=== PATIENT | male | born 1970 | race Caucasian/White ===

== ENCOUNTER 2020-06-22 18:11 | Inpatient (IN) | payer MEDICAID, SELFPAY ==
--- NOTE | ~2020-06-22 | US_ITS ---
EXAMINATION: US carotid duplex BI EXAM DATE: 06/23/2020 11:27 INDICATION: Syncope. TECHNIQUE: Grayscale, color and pulsed Doppler images of the cervical carotid arteries were obtained . The degree of vessel stenosis is placed in one of the following categories: normal, <50% stenosis, 50-69% stenosis, >=70% stenosis but less than near-occlusion, near-occlusion, or occlusion. Note that percent stenosis relative to normal distal artery lumen diameter is indirectly measured from velocit y measurements as described by Dale, et al. Radiology 2003; 229:340-346. There is no prior study fo r comparison. FINDINGS: RIGHT SIDE: Right common carotid artery peak systolic velocity (PSV in cm/s): 81 Right bulb/internal carotid artery peak systolic velocity (PSV in cm/s): 57 Right internal carotid artery end diastolic velocity (EDV in cm/s): 13 Right ICA/CCA peak systolic ratio: 0.7 Right external carotid artery peak systolic velocity (PSV in cm/s): 77 Right vertebral artery antegrade flow: yes There is no focal plaque identified. LEFT SIDE: Left common carotid artery peak systolic velocity (PSV in cm/s): 88 Left bulb/internal carotid artery peak systolic velocity (PSV in cm/s): 87 Left internal carotid artery end diastolic velocity (EDV in cm/s): 18 Left ICA/CCA peak systolic ratio: 1.0 Left external carotid artery peak systolic velocity (PSV in cm/s): 76 Left vertebral artery antegrade flow: yes There is mild carotid bulb plaque. Velocity and Doppler waveforms in the common and internal carotid arteries is normal. IMPRESSION: 1. Normal right internal carotid artery. 2. Less than 50 percent stenosis in the left internal carotid artery. > Reviewed, dictated and finalized at location A. R SUPERVISOR
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
[2020-06-22 18:24] VITALS: BP 140/88; PULSE 140; RESP 20; O2SAT 97
[2020-06-22] MEDS: SODIUM CHLORIDE 0.9% IV 1,000 ML 999 ML IV CONT ×2 (18:27→22:02)
[2020-06-22 18:28] LABS: Basophils Absolute Auto 0.1 K/mm3 (0.0-0.1); Basophils Percent Auto 1.4 % (0.2-1.2); Eosinophils Absolute Auto 0.1 K/mm3 (0-0.3); Eosinophils Percent Auto 2.2 % (0-4.4); Hematocrit 39.5 % (42.0-52.0); Hemoglobin 13.2 g/dL (14.0-18.0); Immature Granulocyte Absolute 0.03 K/mm3 (0.00-0.031); Immature Granulocyte Percent A 0.5 % (0-0.5); Immature Platelet Fraction Pct 6.1 % (0.9-11.2); Lymphocytes Absolute Auto 1.67 K/mm3 (0.9-3.2); Mean Corpuscular HGB Conc 33.4 g/dl (32-36); Mean Corpuscular Hemoglobin 31.3 pg (26-34); Mean Corpuscular Volume 93.6 fl (80-100); Mean Platelet Volume 9.7 fl (7.4-10.4); Monocytes Absolute Auto 0.6 K/mm3 (0.1-0.6); Monocytes Percent Auto 8.7 % (2.6-8.5); Neutrophils Absolute Auto 3.9 K/mm3 (1.3-6.7); Neutrophils Percent Auto 61.2 % (45.5-73.1); Platelet Count Result 142 k/mm3 (150-375); Red Blood Count 4.22 M/mm3 (4.6-6.20); Red Cell Distribution Width 14.8 % (11.5-14.5); White Blood Count 6.4 K/mm3 (4.5-10.0)
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
[2020-06-22 18:40] LABS: Ethanol 42 mg/dL (<10)
[2020-06-22 18:41] LABS: INR 0.9
[2020-06-22 18:49] LABS: Alanine Aminotransferase 61 U/L (4-50); Albumin Level 5.1 g/dL (3.5-5.1); Alkaline Phosphatase 94 U/L (38-126); Anion Gap 31 mmol/L (8-16); Aspartate Amino Transferase 114 U/L (17-59); Bilirubin,Total 0.5 mg/dL (0.2-1.3); Blood Urea Nitrogen 12 mg/dL (9-20); Calcium 9.2 mg/dL (8.4-10.2); Carbon Dioxide 11 mmol/L (22-30); Chloride 99 mmol/L (98-107); Estimated CRCL calculation 84 ml/min; Estimated Glomerular Filt Rate > 60; Glucose 117 mg/dL (75-110); Potassium 3.5 mmol/L (3.4-5.0); Sodium 141 mmol/L (137-145)
[2020-06-22 19:12] LABS: Add Urine Microscopic? YES; Appearance Urine Clear (Clear); Bilirubin Urine Negative (Negative); Blood Urine 2+ (Negative); Color Urine Yellow (Yellow); Glucose Urine UA Negative (Negative); Ketones Urine Trace mg/dL (Negative); Leukocyte Esterase Ur Negative LEU/UL (Negative); Mucus Urine Heavy /lpf; Nitrate Urine Negative (Negative); Protein Urine 2+ mg/dL (Negative); RBC Urine 0-2 /hpf (0-2); Specific Grav Ur 1.019 (1.001-1.035); WBC Urine 0-3 /hpf
[2020-06-22 19:23] LABS: Amphetamine Screen Urine Negative (Negative); Barbiturate Screen Urine Negative (Negative); Benzodiazepines Screen Urine Negative (Negative); Cannabinoid Screen Urine Positive (Negative); Cocaine Screen Urine Negative (Negative); Methadone Screen Urine Negative (Negative); Opiate Screen Urine Negative (Negative); Phencyclidine Screen Urine Negative (Negative)
--- NOTE | 2020-06-22 19:41 | PC.NURSE ---
O2 off per VO Dr. Benavidez. Pt. declined chest CT
[2020-06-22 19:46] VITALS: BP 161/95; PULSE 97; RESP 19; O2SAT 99
[2020-06-22 20:05] VITALS: RESP 18; O2SAT 99
[2020-06-22] MEDS: diazePAM INJ (*CRX) 10 MG/2 ML SYRINGE 5 MG IV PUSH ×2 (20:44→22:02)
[2020-06-22] MEDS: ONDANSETRON INJ 4 MG/2 ML VIAL IV PUSH (20:45)
[2020-06-22] MEDS: TETANUS,DIPHTHERIA,AC PERTUSSIS ADULT (0.5 ML) BOOSTRIX IM (20:46)
[2020-06-22 21:31] VITALS: BP 148/92; PULSE 88; RESP 16; O2SAT 99
[2020-06-22 22:05] VITALS: BP 129/74; PULSE 104; RESP 18; O2SAT 97
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
[2020-06-23] MEDS: MORPHINE SULFATE (*CRX) 4 MG/ML INJ IV PUSH (01:11)
[2020-06-23] MEDS: LORazepam INJ (*CRX) 2 MG/ML VIAL 1 MG IV PUSH (01:12)
[2020-06-23] MEDS: chlordiazePOXIDE (*CRX) 25 MG CAPSULE PO ×5 (01:12→23:11)
[2020-06-23] MEDS: ONDANSETRON INJ 4 MG/2 ML VIAL IV PUSH (01:16)
[2020-06-23 01:21] VITALS: BP 140/95; PULSE 76; RESP 15; O2SAT 98
[2020-06-23 05:05] LABS: Basophils Absolute Auto 0.1 K/mm3 (0.0-0.1); Basophils Percent Auto 0.8 % (0.2-1.2); Eosinophils Percent Auto 0.3 % (0-4.4); Hematocrit 36.2 % (42.0-52.0); Hemoglobin 12.4 g/dL (14.0-18.0); Immature Granulocyte Absolute 0.02 K/mm3 (0.00-0.031); Immature Granulocyte Percent A 0.3 % (0-0.5); Immature Platelet Fraction Pct 6.7 % (0.9-11.2); Lymphocytes Absolute Auto 0.82 K/mm3 (0.9-3.2); Lymphocytes Percent Auto 10.9 % (18.3-44.2); Mean Corpuscular HGB Conc 34.3 g/dl (32-36); Mean Corpuscular Hemoglobin 31.3 pg (26-34); Mean Corpuscular Volume 91.4 fl (80-100); Mean Platelet Volume 10.6 fl (7.4-10.4); Monocytes Absolute Auto 0.7 K/mm3 (0.1-0.6); Monocytes Percent Auto 8.7 % (2.6-8.5); Neutrophils Absolute Auto 5.9 K/mm3 (1.3-6.7); Platelet Count Result 113 k/mm3 (150-375); Red Blood Count 3.96 M/mm3 (4.6-6.20); Red Cell Distribution Width 14.5 % (11.5-14.5); White Blood Count 7.5 K/mm3 (4.5-10.0)
[2020-06-23 05:16] LABS: Anion Gap 10 mmol/L (8-16); Blood Urea Nitrogen 9 mg/dL (9-20); Calcium 8.4 mg/dL (8.4-10.2); Carbon Dioxide 26 mmol/L (22-30); Chloride 100 mmol/L (98-107); Estimated CRCL calculation 117 ml/min; Estimated Glomerular Filt Rate > 60; Glucose 68 mg/dL (75-110); Magnesium 2.1 mg/dL (1.6-2.3); Potassium 3.9 mmol/L (3.4-5.0); Sodium 136 mmol/L (137-145)
--- NOTE | 2020-06-23 05:16 | ECHO_ITS ---
Patient Info Name: Janes Will Age: 49 years : 1970 Gender: Male Ht: 72 in Wt: 165 lbs BSA: 1.95 m2 HR: 57 bpm BP: 140 / 95 mmHg Heart Rhythm: Sinus Rhythm Technical Quality: Good Exam Date: 06/23/2020 8:41 AM Exam Location: [facility] Pulmonary Patient Status: Inpatient Admit Date: 06/22/2020 Staff Ordering Physician: Rubio Hsieh MD Risk Management Analyst: Berna Hernandez RDCS Attending Provider: Rubio Hsieh MD Referring Physician: Мария JACINTO; Exam Type: CA echo doppler color flow Study Info Indications - syncope Complete two-dimensional, color flow and Doppler transthoracic echocardiogram is performed. Summary 1. Complete two-dimensional, color flow and Doppler transthoracic echocardiogram is performed. 2. Unremarkable 2D/Doppler echocardiogram. Left Ventricle Left ventricular chamber dimension is normal. Left ventricular systolic function is normal, estimated at 60-65%. The left ventricular diastolic function is normal. Right Ventricle Right ventricular chamber dimension is normal. Left Atria Left atrial chamber dimension is normal. Right Atria Right atrial chamber dimension is normal. Aortic Valve The aortic valve is normal. Pulmonic Valve The pulmonic valve is normal. Mitral Valve The mitral valve has normal leaflets. Tricuspid Valve The tricuspid valve leaflets are normal. Pericardium/Pleural The pericardium appears normal. Aorta The aortic root size at the sinus of Valsalva is normal. Left Ventricular Outflow Tract Name Value Normal LVOT 2D LVOT Diameter 2.1 cm LVOT Doppler LVOT Peak Gradient 4 mmHg LVOT Mean Gradient 2 mmHg LVOT VTI 21 cm LVOT VTI/AV VTI Ratio 1.0 LVOT Stroke Volume 73 ml LVOT CO 14.4 l/min LVOT CI 7.4 l/min/m2 Pulmonic Valve Name Value Normal PV Doppler PV Peak Gradient 5 mmHg Mitral Valve Name Value Normal MV Doppler MV Decel [place] 313 cm/s2 MV PHT 63 ms MV Area (PHT) 3.5 cm2 4.0-5.0 MV Diastolic Function MV E Peak Velocity 68 cm/s MV A Peak Velocity 72 cm/s MV E/A 1.0 MV Decel Time 217 ms Heuspi
[2020-06-23 06:34] VITALS: BMI 21.5
[2020-06-23] MEDS: SODIUM CHLORIDE 0.9% IV 1,000 ML 125 ML IV CONT ×3 (06:59→23:10)
[2020-06-23 07:30] VITALS: BP 134/82; PULSE 69; RESP 16; TEMP 37.6; O2SAT 99
[2020-06-23 07:38] LABS: Glucose Point of Care 89 (65-105)
[2020-06-23 07:38] LABS: Glucose Point of Care 68 (65-105)
[2020-06-23 07:50] LABS: Glucose Point of Care 90 (65-105)
[2020-06-23 08:00] VITALS: BP 136/79; PULSE 63; PULSE 66; RESP 16; TEMP 37.1; O2SAT 99
[2020-06-23 10:00] VITALS: PULSE 74
[2020-06-23] MEDS: THIAMINE HCL 200 MG/2 ML VIAL 100 MG IV PUSH (10:02)
--- NOTE | 2020-06-23 10:27 | ADMGEN ---
This patient, Janes Will, was admitted to IMU Room 231-01 on 06/23/2020 at 0634. Admission was completed at 10:27. Patient/family oriented to hospital policies and general routines including ID bracelet, bed and alarms, visiting hours, pain management, procedures, bathroom and other care routines, personal items, smoking policy, room service/diet, and visiting hours. Information on how to activate the Rapid Response Team has been discussed. Patient/Family are encouraged to report perceived risks to care and to ask questions if they do not understand what they are told or what they should do.
[2020-06-23 12:12] LABS: Glucose Point of Care 61 (65-105)
[2020-06-23 12:25] VITALS: BP 145/89; PULSE 75; RESP 18; TEMP 36.7; O2SAT 100
[2020-06-23 13:07] LABS: Glucose Point of Care 73 (65-105)
--- NOTE | 2020-06-23 14:46 | PC.NURSE ---
This patient, Janes Will, was transferred to [facility] on 06/23/20 at 1446. Personal belongings sent with patient. Report given to IDA Syed. Appropriate documentation sent with patient.
--- NOTE | 2020-06-23 14:50 | PC.NURSE ---
Received patient from IMU via bed with IMU staff. Settled in room. Seizure precautions maintained. No c/o pain. No distress noted. CIWA score 4.
[2020-06-23 16:45] LABS: Glucose Point of Care 90 (65-105)
[2020-06-23 17:15] VITALS: BP 144/79; PULSE 83; RESP 18; TEMP 37.1; O2SAT 99
[2020-06-23 23:18] LABS: Glucose Point of Care 85 (65-105)
[2020-06-24] VITALS: BP 146/99; PULSE 75; RESP 20; TEMP 36.9; O2SAT 99
[2020-06-24] MEDS: chlordiazePOXIDE (*CRX) 25 MG CAPSULE PO ×2 (06:06→11:53)
[2020-06-24] MEDS: SODIUM CHLORIDE 0.9% IV 1,000 ML 125 ML IV CONT (06:06)
[2020-06-24 06:15] LABS: Basophils Percent Auto 0.6 % (0.2-1.2); Eosinophils Absolute Auto 0.2 K/mm3 (0-0.3); Eosinophils Percent Auto 3.1 % (0-4.4); Hematocrit 38.4 % (42.0-52.0); Immature Granulocyte Absolute 0.03 K/mm3 (0.00-0.031); Immature Granulocyte Percent A 0.4 % (0-0.5); Immature Platelet Fraction Pct 8.3 % (0.9-11.2); Lymphocytes Percent Auto 16.4 % (18.3-44.2); Mean Corpuscular HGB Conc 33.9 g/dl (32-36); Mean Corpuscular Hemoglobin 31.2 pg (26-34); Mean Corpuscular Volume 92.1 fl (80-100); Mean Platelet Volume 10.6 fl (7.4-10.4); Monocytes Absolute Auto 0.5 K/mm3 (0.1-0.6); Neutrophils Absolute Auto 4.9 K/mm3 (1.3-6.7); Neutrophils Percent Auto 72.5 % (45.5-73.1); Platelet Count Result 109 k/mm3 (150-375); Red Blood Count 4.17 M/mm3 (4.6-6.20); Red Cell Distribution Width 14.6 % (11.5-14.5); White Blood Count 6.7 K/mm3 (4.5-10.0)
[2020-06-24 06:17] VITALS: BP 137/96; PULSE 68; RESP 20; TEMP 37.3; O2SAT 99
[2020-06-24 06:32] LABS: Alanine Aminotransferase 47 U/L (4-50); Albumin Level 3.9 g/dL (3.5-5.1); Alkaline Phosphatase 72 U/L (38-126); Anion Gap 9 mmol/L (8-16); Aspartate Amino Transferase 79 U/L (17-59); Bilirubin,Total 0.8 mg/dL (0.2-1.3); Blood Urea Nitrogen 6 mg/dL (9-20); Calcium 8.3 mg/dL (8.4-10.2); Carbon Dioxide 29 mmol/L (22-30); Chloride 98 mmol/L (98-107); Creatine Kinase 169 U/L (55-170); Estimated CRCL calculation 118 ml/min; Estimated Glomerular Filt Rate > 60; Glucose 74 mg/dL (75-110); Magnesium 1.9 mg/dL (1.6-2.3); Phosphorus 2.5 mg/dL (2.5-4.5); Potassium 3.5 mmol/L (3.4-5.0); Sodium 136 mmol/L (137-145)
[2020-06-24 07:12] LABS: Hepatitis B Surface Antigen Negative (Negative)
[2020-06-24 07:17] LABS: HAV RESULT Negative (Negative); Hepatitis B Core IgM Result Negative (Negative)
[2020-06-24 07:29] LABS: Hepatitis C Virus Antibody Negative (Negative)
[2020-06-24 08:22] LABS: Glucose Point of Care 79 (65-105)
[2020-06-24] MEDS: POTASSIUM CHLORIDE 20 MEQ TABLET 40 MEQ PO (09:19)
[2020-06-24] MEDS: THIAMINE HCL 200 MG/2 ML VIAL 100 MG IV PUSH (09:19)
[2020-06-24 12:01] LABS: Glucose Point of Care 101 (65-105)
--- NOTE | 2020-06-24 17:59 | PM.DS ---
DS: Admitting Diagnosis Admitting Diagnosis Admitting Diagnosis: alcohol withdrawal, seizure DS: Summary Time Spent with Patient Time attestation: Total time spent providing and/or coordinating discharge services: 35 minutes Exam Narrative: Exam Narrative: Condition on discharge Blood pressure 136/96 pulse is 68 saturating 99% on room air afebrile Lungs clear CV regular rate rhythm Abdomen soft nontender Extremities without edema distal pulses Neuro alert oriented no focal deficits no agitation, he was up in about taking a regular diet and stable to be discharged home DS: Data Data Completed and Pending Labs on day of discharge: Labs from last 24 hours 06/24/20 06/24/20 06/24/20 11:56 07:53 04:32 WBC RBC Hgb Hct MCV MCH MCHC RDW Plt Count MPV Immature Gran % (Auto) Neut % (Auto) Lymph % (Auto) [place] % (Auto) Eos % (Auto) Baso % (Auto) Lymph # (Auto) [place] # (Auto) Eos # (Auto) Baso # (Auto) Abs Immat Gran (auto) Absolute Neuts (auto) Absolute Nucleated RBC Nucleated RBC % % Immature Plt Fraction Sodium Potassium Chloride Carbon Dioxide Anion Gap BUN Creatinine Estim Creat Clear Calc Estimated GFR Glucose POC Capillary Glucose 101 79 Calcium Phosphorus Magnesium Total Bilirubin Direct Bilirubin AST ALT Alkaline Phosphatase Total Creatine Kinase Total Protein Albumin Hepatitis A IgM Ab Negative Hep Bs Antigen Negative Hep B Core IgM Ab Negative Hepatitis C Ab Screen Negative 06/24/20 06/24/20 06/23/20 04:32 04:32 23:13 WBC 6.7 RBC 4.17 L Hgb 13.0 L Hct 38.4 L MCV 92.1 MCH 31.2 MCHC 33.9 RDW 14.6 H Plt Count 109 L MPV 10.6 H Immature Gran % (Auto) 0.4 Neut % (Auto) 72.5 Lymph % (Auto) 16.4 L [place] % (Auto) 7.0 Eos % (Auto) 3.1 Baso % (Auto) 0.6 Lymph # (Auto) 1.10 [place] # (Auto) 0.5 Eos # (Auto) 0.2 Baso # (Auto) 0.0 Abs Immat Gran (auto) 0.03 Absolute Neuts (auto) 4.9 Absolute Nucleated RBC 0.0 Nucleated RBC % 0.0 % Immature Plt Fraction 8.3 Sodium 136 L Potassium 3.5 Chloride 98 Carbon Dioxide 29 Anion Gap 9 BUN 6 L Creatinine 0.70 Estim Creat Clear Calc 118 Estimated GFR > 60 Glucose 74 L POC Capillary Glucose 85 Calcium 8.3 L Phosphorus 2.5 Magnesium 1.9 Total Bilirubin 0.8 Direct Bilirubin 0.0 AST 79 H ALT 47 Alkaline Phosphatase 72 Total Creatine Kinase 169 Total Protein 7.0 Albumin 3.9 Hepatitis A IgM Ab Hep Bs Antigen Hep B Core IgM Ab Hepatitis C Ab Screen Discharge Plan Discharge Attending physician on discharge: Jorge Colin Consulting providers: Derrick Fuentes ; Rosangela Garibay Discharging Clinician: Jorge Colin Patient Disposition: Home, Self-Care Activity: as tolerated Diet: regular Patient Instructions: Antibiotic Form, Pain Management (DC), Abuse of Alcohol (DC), Alcohol Withdrawal (DC), Fall Prevention (DC) Stand Alone Forms: General Discharge Information Follow-up/Referrals: Derrick Fuentes MD [Physician] - 2 Weeks Discharge Medications: No Action No Home Medications RF: 0 Date of admission: 06/22/20 22:08 Primary Care Provider: PHYSICIAN,APPAREL DESIGNER Admitting Provider: Rubio Hsieh Attending physician on admission: Rubio Hsieh Condition: Stable Quality VTE Prophylaxis VTE prophylaxis: mechanical ordered
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
--- NOTE | 2020-08-01 09:05 | PM.EVENT ---
Event Note Event Note Event Note: Pt was discharged/transferred before I could see him
== END 2020-06-24 13:10 | disposition home or self-care (01) | DRG 775 ==
LOC: ANHED 23:15 → ANH2MED 06-24 09:53 → ANHIMU 06-27 17:06
PROVIDERS: Admitting Provider Family Medicine; Emergency Provider Emergency Medicine; Visit Provider Internal Medicine
DX: R41.89 Other symptoms and signs involving cognitive functions and awareness (principal); F10.239 Alcohol dependence with withdrawal, unspecified; D64.9 Anemia, unspecified; R79.89 Other specified abnormal findings of blood chemistry; F17.290 Nicotine dependence, other tobacco product, uncomplicated; S00.81XA Abrasion of other part of head, initial encounter; S00.31XA Abrasion of nose, initial encounter; V18.4XXA Pedal cycle driver injured in noncollision transport accident in traffic accident, initial encounter; Z28.21 Immunization not carried out because of patient refusal
CPT/HCPCS: 36415; 70450; 71046; 71260; 72125; 80048; 80053; 80074; 80076; 80307; 81001; 82550; 83735; 84100; 84443; 85025; 85055; 85610; 85730; 90471; 90715; 93306; 93880; 96361; 96374; 96375; 99285; A9270; J2060; J2270; J2405; J3360; J3411; J7030; Q9967